=== PATIENT | male | born 1945 | race Caucasian/White ===

== ENCOUNTER 2017-01-24 11:19 | Emergency (ER) | payer MEDICARE, OTHER ==
[~2017-01-24] VITALS: Ht 175.3 cm; Wt 99.7 kg
[2017-01-24 11:26] VITALS: BP 192/92; PULSE 106; RESP 16; TEMP 97.6; O2SAT 97
[2017-01-24] MEDS ORDERED: TAMS5CAP PO (11:36)
[2017-01-24] MEDS ORDERED: HYZA100T6 PO (11:36)
--- NOTE | 2017-01-24 11:46 | PD ---
HPI Chief Complaint: Complaint Time Seen by Provider: 11:40 Travel History International Travel<30 days: No Contact w/Intl Traveler<30days: No Traveled to known affect area: No History of Present Illness HPI This patient complains of inability to urinate today. He was able to urinate yesterday. He has history of urinary retention and enlarged prostate and prostate cancer. He has had a suprapubic catheter in the past but no longer does. He is vacationing from [place]. He denies fever or upper abdominal pain. He feels like his bladder is full and distended. Severity is moderate. No alleviating factors. Duration one day PFSH Past Medical History Hx Anticoagulant Therapy: No Cardiovascular Problems: Yes (HTN) Diabetes: No Diminished Hearing: No Genitourinary: Yes (ENLARGED PROSTATE/H/O URINARY RETENTION) Hypertension: Yes Tetanus Vaccination: < 5 Years Influenza Vaccination: Yes Past Surgical History Genitourinary Surgery: Yes Social History Alcohol Use: Yes (EVERY COUPLE OF DAYS) Tobacco Use: Yes (CIGARS) Substance Use: No Allergies-Medications (Allergen,Severity, Reaction): Coded Allergies: No Known Allergies (Unverified , 01/24/17) Reported Meds & Prescriptions Reported Meds & Active Scripts Active Reported Flomax (Tamsulosin HCl) 0.4 Mg Cap 0.4 Mg PO HS Hyzaar (Losartan-Hydrochlorothiazide) 100-25 Mg Tab 1 Tab PO DAILY Review of Systems General / Constitutional: No: Fever Eyes: No: Visual changes HENT: No: Headaches Cardiovascular: No: Chest Pain or Discomfort Respiratory: No: Shortness of Breath Gastrointestinal: No: Abdominal Pain Genitourinary: Positive: Decreased Urinary Output, No: Dysuria Musculoskeletal: No: Pain Skin: No Rash Neurologic: No: Weakness Psychiatric: No: Depression Endocrine: No: Polydipsia Hematologic/Lymphatic: No: Easy Bruising Physical Exam Narrative GENERAL: Well-nourished, well-developed patient in no apparent distress. SKIN: Focused skin assessment reveals no rash and nodules. Skin is Warm and dry. HEAD: Atraumatic. Normocephalic. EYES: Pupils equal and round. No scleral icterus. No injection or drainage. ENT: No nasal bleeding or discharge. Mucous membranes pink and moist. NECK: Trachea midline. No JVD. CARDIOVASCULAR: Regular rate and rhythm. No murmur appreciated. RESPIRATORY: No accessory muscle use. Clear to auscultation. Breath sounds equal bilaterally. GASTROINTESTINAL: Abdomen soft, some suprapubic tenderness and fullness . Hepatic and splenic margins not palpable. MUSCULOSKELETAL: No obvious deformities. No clubbing. No cyanosis. No edema. NEUROLOGICAL: Awake and alert. No obvious cranial nerve deficits. Motor grossly within normal limits. Normal speech. PSYCHIATRIC: Appropriate mood and affect; insight and judgment normal. : Circumcised penis. There is some tenderness and fullness in the suprapubic area but no rebound or guarding Data Data Last Documented VS Vital Signs Date Time Temp Pulse Resp B/P Pulse Ox O2 Delivery O2 Flow Rate FiO2 01/24/17 11:26 97.6 106 16 192/92 97 Orders Urinary Catheter Insert/Apply (01/24/17 11:40) [facility] Medical Decision Making Medical Screen Exam Complete: Yes Emergency Medical Condition: Yes Medical Record Reviewed: Yes Differential Diagnosis Urinary retention, prostatic cancer, urethral stricture Narrative Course I have reviewed the patient's electronic medical record. We have attempted to catheterize him multiple times. Nurse was able to place a coud and he is drained out a total of 800 cc of clear yellow urine so far but still draining When his bladder is empty we will switch him to a leg bag and he will be discharged home with that He has a urologist at home to follow-up with, he is going home in a few days Diagnosis Primary Impression: Acute urinary retention Additional Instructions: Follow-up with your urologist Med/Other Pt SpecificInfo: Other Disposition: 01 DISCHARGE HOME Condition: Stable Charles Holland MD Jan 24, 2017 11:46
[2017-01-24 12:32] VITALS: BP 141/77; PULSE 82; RESP 16; O2SAT 96
== END 2017-01-24 12:54 | disposition home or self-care (01) ==
LOC: PHED 11:19
DX: N40.1 Benign prostatic hyperplasia with lower urinary tract symptoms (principal); R33.9 Retention of urine, unspecified; I10 Essential (primary) hypertension; F17.290 Nicotine dependence, other tobacco product, uncomplicated; Z85.46 Personal history of malignant neoplasm of prostate
CPT/HCPCS: 51703